=== PATIENT | female | born 1990 | race African-American/Black ===

== ENCOUNTER 2021-10-17 02:42 | Emergency (ER) | payer SELFPAY ==
[~2021-10-17] VITALS: Ht 170.2 cm; Wt 81.0 kg
[2021-10-17] MEDS ORDERED: ONDANSETRON 4MG ODT PO ONE (03:00)
[2021-10-17 04:21] LABS: BASOPHILS % 0.5 % (0.0-2.0); EOSINOPHILS % 3.6 % (0.0-5.0); HEMATOCRIT. 36.9 % (36.0-48.0); HEMOGLOBIN. 12.1 g/dL (12.0-16.0); LYMPHOCYTES % 23.1 % (20.0-50.0); MEAN CORPUSCULAR HEMOGLOBIN 30.7 pg (28.0-32.0); MEAN CORPUSCULAR VOLUME 93.5 fL (81.0-99.0); MEAN PLATELET VOLUME 8.7 fl (7.4-10.4); MONOCYTES % 10.5 % (2.0-8.0); NEUTROPHILS % 62.3 % (40.0-76.0); PLATELET 386 x1000/uL (130-400); RED BLOOD CELL COUNT 3.94 mill/uL (4.2-5.4); RED CELL DISTRIBUTION WIDTH 15.1 % (11.6-14.6)
[2021-10-17 04:32] LABS: CHLORIDE 107 mEq/L (98-107)
[2021-10-17 04:35] LABS: ETHANOL BLOOD < 10 mg/dL
[2021-10-17 04:38] LABS: CLARITY URINE CLOUDY (CLEAR); COLOR URINE YELLOW (YELLOW); KETONES URINE TRACE (NEGATIVE); LEUKOCYTE ESTERASE URINE 2+ (NEGATIVE); NITRITE URINE POSITIVE (NEGATIVE); OCCULT BLOOD URINE NEGATIVE (NEGATIVE); PH URINE 5.5 (4.5-8.0); PROTEIN URINE TRACE (NEGATIVE); SPECIFIC GRAVITY URINE 1.034 (1.005-1.030)
[2021-10-17 04:39] LABS: HCG SCREEN NEGATIVE
[2021-10-17] MEDS ORDERED: CEPHALEXIN 250MG CAPSULE PO ONE (04:45)
[2021-10-17] MEDS ORDERED: POTASSIUM CHLORIDE 20MEQ TABLET SR PO ONE (04:45)
[2021-10-17 04:52] LABS: *BARBITURATES SCREEN URINE NEGATIVE (NEGATIVE); *BENZODIAZEPINES SCREEN URINE NEGATIVE (NEGATIVE); *COCAINE SCREEN URINE NEGATIVE (NEGATIVE); METHADONE URINE SCREEN NEGATIVE (NEGATIVE); OPIATES URINE SCREEN NEGATIVE (NEGATIVE)
[2021-10-17 04:53] LABS: CANNABINOID URINE SCREEN NEGATIVE (NEGATIVE); PHENCYCLIDINE URINE SCREEN NEGATIVE (NEGATIVE)
[2021-10-17] MEDS ORDERED: CEPH500C2 MT (04:53)
[2021-10-17 04:58] LABS: *AMPHETAMINES SCREEN URINE PRESUMTIVE POSITIVE (NEGATIVE)
[2021-10-17 05:00] VITALS: BP 135/70
[2021-10-17] MEDS ORDERED: ONDANSETRON 4MG ODT PO SCH (05:00)
== END 2021-10-17 05:28 | disposition home or self-care (01) ==
LOC: ER 02:42
DX: R11.10 Vomiting, unspecified (principal); R05.9 Cough, unspecified; N39.0 Urinary tract infection, site not specified; E87.6 Hypokalemia
CPT/HCPCS: 36415; 71045; 80053; 80305; 80320; 81003; 81025; 83690; 84703; 85025; 87077; 87086; 87186; 99284; Q0162; G0480